=== PATIENT | male | born 1955 | race Caucasian/White ===

== ENCOUNTER 2018-01-27 13:55 | Outpatient (CLI) ==
--- NOTE | 2018-01-27 15:32 | DI ---
EXAM: Three views of the right hand. History: Right hand pain. Findings: Periarticular osteopenia. There is severe narrowing of the radiocarpal joint with widenin g of the scapholunate interval and erosive changes of the proximal scaphoid and lunate bone. There a re large subchondral cysts within the distal ulna and distal radius. Moderate narrowing of the inter carpal joints and mild to moderate narrowing of the interphalangeal joints and MCP joints. Impression: 1. No acute fracture. 2. 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 3. 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 4. Erosive changes within the scaphoid and lunate bone concerning for either old trauma or erosive o steoarthropathy.
--- NOTE | 2018-01-27 15:33 | DI ---
EXAM: Three views of the right wrist. History: Right wrist pain. Findings: No acute fracture. Periarticular osteopenia. Severe narrowing of the radiocarpal joint. Large subchondral cysts within the distal radius and ulna. Widening of the scapholunate interval is degenerative in nature. Erosive osseous changes of the proximal scaphoid and lunate bone. Impression: 1. No acute fracture. 2. Chronic widening of the scapholunate interval. 3. Erosive osseous changes of the proximal scaphoid and lunate bone could be due to old trauma or er osive osteoarthropathy such as rheumatoid arthritis. 4. Severe arthritis of the radiocarpal joint
== END 2018-01-27 13:56 | disposition home or self-care (01) ==
LOC: RAD 13:55
PROVIDERS: ATTEND Nurse Practitioner Family
DX: M25.531 Pain in right wrist (principal)